=== PATIENT | female | born 1980 | race African-American/Black ===

== ENCOUNTER 2017-09-06 09:58 | Emergency (ER) | payer OTHER ==
[~2017-09-06] VITALS: Ht 157.5 cm; Wt 66.2 kg
[~2017-09-06 09:58] MED LIST: EAR DROPS
[2017-09-06 10:10] VITALS: BP_SYST 103
[2017-09-06] MEDS ORDERED: NACL 0.9% 1,000 ML IV ONE (11:33)
[2017-09-06] MEDS ORDERED: ONDANSETRON HCL 4 MG/2 ML VIAL IVP ONE (11:45)
[2017-09-06 11:55] LABS: BASOPHILS # (AUTO) 0.1 K/uL (0.0-0.2); BASOPHILS % (AUTO) 1.5 % (0.0-2.0); EOSINOPHILS # (AUTO) 0.1 K/uL (0.0-0.4); EOSINOPHILS % (AUTO) 2.3 % (0.0-4.0); HEMATOCRIT 34.9 % (36-48); HEMOGLOBIN 11.1 g/dL (12.0-16.0); LYMPHOCYTES # (AUTO) 1.9 K/uL (1.0-5.5); LYMPHOCYTES % (AUTO) 29.8 % (20.5-51.5); MEAN CORPUSCULAR HEMOGLOBIN 24 pg (27-31); MEAN CORPUSCULAR HGB CONC 32 % (32-36); MEAN CORPUSCULAR VOLUME 74 fL (79.0-98.0); MONOCYTES # (AUTO) 0.4 K/uL (0.0-1.0); MONOCYTES % (AUTO) 6.3 % (1.7-9.3); NEUTROPHILS # (AUTO) 3.8 K/uL (1.8-7.7); NEUTROPHILS % (AUTO) 60.1 % (40.0-70.0); PLATELET COUNT (AUTO) 308 K/uL (130-430); RED CELL DISTRIBUTION WIDTH 13.6 % (9.0-15.0); WHITE BLOOD COUNT (AUTO) 6.3 K/uL (4.8-10.8)
[2017-09-06 12:00] LABS: BILIRUBIN,URINE NEGATIVE (NEGATIVE); BLOOD, URINE 1+ (NEGATIVE); CLARITY/URINE SL HAZY (CLEAR); COLOR,URINE YELLOW (YELLOW); GLUCOSE,URINE NEGATIVE (NEGATIVE); KETONES,URINE NEGATIVE (NEGATIVE); LEUKOCYTE ESTERASE ,URINE TRACE (NEGATIVE); NITRITE, URINE NEGATIVE (NEGATIVE); PROTEIN URINE NEGATIVE (NEGATIVE); UROBILINOGEN,URINE 0.2 (0.2-1.0)
[2017-09-06 12:02] LABS: CALCIUM 8.8 mg/dL (8.4-11.0); CREATININE 0.78 mg/dL (0.55-1.30); POTASSIUM 3.8 mmol/L (3.5-5.1)
[2017-09-06 12:08] LABS: ALBUMIN 4.2 g/dL (3.4-4.8); TOTAL BILIRUBIN 0.6 mg/dL (0.0-1.0)
[2017-09-06 12:12] LABS: BACTERIA,URINE FEW /HPF (None Seen); RBC,URINE 0-3 /HPF (0-3); WBC,URINE 0-3 /HPF (0-3)
[2017-09-06 12:13] LABS: MUCUS,URINE 1+ /LPF (None Seen)
[2017-09-06 13:00] VITALS: BP_SYST 105
== END 2017-09-06 13:00 | disposition home or self-care (01) ==
LOC: SED 09:58
DX: R11.0 Nausea (principal); R10.13 Epigastric pain; R42 Dizziness and giddiness; Z88.1 Allergy status to other antibiotic agents; Z86.2 Personal history of diseases of the blood and blood-forming organs and certain disorders involving the immune mechanism; Z98.51 Tubal ligation status
CPT/HCPCS: 36415; 80053; 81000; 81025; 83690; 85025; 96361; 96374; 99284; J2405; J7030

== ENCOUNTER 2018-07-27 08:37 | Emergency (ER) | payer OTHER ==
[~2018-07-27] VITALS: Ht 157.5 cm; Wt 66.2 kg
[2018-07-27 08:37] VITALS: BP_SYST 140
[2018-07-27] MEDS ORDERED: NACL 0.9% 1,000 ML IV ONE (09:38)
[2018-07-27 10:24] LABS: CALCIUM 9.6 mg/dL (8.4-11.0); CREATININE 0.89 mg/dL (0.55-1.30); INR 0.9 (0.8-1.2); POTASSIUM 3.3 mmol/L (3.5-5.1); PROTHROMBIN TIME 9.4 SECS (9.5-12.5)
[2018-07-27 10:25] LABS: BASOPHILS # (AUTO) 0.1 K/uL (0.0-0.2); BASOPHILS % (AUTO) 1.2 % (0.0-2.0); EOSINOPHILS # (AUTO) 0.1 K/uL (0.0-0.4); EOSINOPHILS % (AUTO) 2.6 % (0.0-4.0); HEMATOCRIT 38.8 % (36-48); HEMOGLOBIN 12.1 g/dL (12.0-16.0); LYMPHOCYTES # (AUTO) 1.6 K/uL (1.0-5.5); LYMPHOCYTES % (AUTO) 28.3 % (20.5-51.5); MEAN CORPUSCULAR HEMOGLOBIN 23 pg (27-31); MEAN CORPUSCULAR HGB CONC 31 % (32-36); MEAN CORPUSCULAR VOLUME 74 fL (79.0-98.0); MONOCYTES # (AUTO) 0.3 K/uL (0.0-1.0); MONOCYTES % (AUTO) 5.1 % (1.7-9.3); NEUTROPHILS # (AUTO) 3.5 K/uL (1.8-7.7); NEUTROPHILS % (AUTO) 62.8 % (40.0-70.0); PLATELET COUNT (AUTO) 359 K/uL (130-430); RED BLOOD CELL COUNT(AUTO) 5.22 MIL/uL (4.2-6.2); RED CELL DISTRIBUTION WIDTH 13.5 % (9.0-15.0); WHITE BLOOD COUNT (AUTO) 5.6 K/uL (4.8-10.8)
[2018-07-27 10:27] LABS: BILIRUBIN,URINE NEGATIVE (NEGATIVE); BLOOD, URINE NEGATIVE (NEGATIVE); CLARITY/URINE CLEAR (CLEAR); COLOR,URINE YELLOW (YELLOW); GLUCOSE,URINE NEGATIVE (NEGATIVE); KETONES,URINE NEGATIVE (NEGATIVE); LEUKOCYTE ESTERASE ,URINE NEGATIVE (NEGATIVE); NITRITE, URINE NEGATIVE (NEGATIVE); PROTEIN URINE NEGATIVE (NEGATIVE); UROBILINOGEN,URINE 0.2 (0.2-1.0)
[2018-07-27 10:28] LABS: ALBUMIN 4.6 g/dL (3.4-4.8); TOTAL BILIRUBIN 0.7 mg/dL (0.0-1.0)
[2018-07-27 11:38] VITALS: BP_SYST 140
== END 2018-07-27 11:38 | disposition home or self-care (01) ==
LOC: SED 08:37
DX: K52.9 Noninfective gastroenteritis and colitis, unspecified (principal); D64.9 Anemia, unspecified; Z98.51 Tubal ligation status; Z88.1 Allergy status to other antibiotic agents
CPT/HCPCS: 36415; 76700; 80053; 81003; 81025; 83690; 85025; 85610; 96360; 99285; J7030; J7040

== ENCOUNTER 2019-06-21 11:00 | Emergency (ER) | payer MEDICAID, OTHER ==
[~2019-06-21] VITALS: Ht 165.1 cm; Wt 68.0 kg
[2019-06-21 11:20] VITALS: BP_SYST 123
[2019-06-21] MEDS ORDERED: KETOROLAC TROMETHAMINE 30 MG VIAL IVP ONE (11:45)
[2019-06-21 12:28] LABS: HEMOGLOBIN 12.2 g/dL (12.0-16.0); MEAN CORPUSCULAR VOLUME 73 fL (79.0-98.0); RED BLOOD CELL COUNT(AUTO) 5.18 MIL/uL (4.2-6.2); WHITE BLOOD COUNT (AUTO) 5.2 K/uL (4.8-10.8)
[2019-06-21 12:29] LABS: BASOPHILS # (AUTO) 0.1 K/uL (0.0-0.2); BASOPHILS % (AUTO) 1.2 % (0.0-2.0); EOSINOPHILS # (AUTO) 0.1 K/uL (0.0-0.4); EOSINOPHILS % (AUTO) 1.3 % (0.0-4.0); LYMPHOCYTES # (AUTO) 1.5 K/uL (1.0-5.5); MEAN CORPUSCULAR HEMOGLOBIN 24 pg (27-31); MEAN CORPUSCULAR HGB CONC 32 % (32-36); MONOCYTES # (AUTO) 0.3 K/uL (0.0-1.0); MONOCYTES % (AUTO) 6.3 % (1.7-9.3); NEUTROPHILS # (AUTO) 3.3 K/uL (1.8-7.7); NEUTROPHILS % (AUTO) 63.2 % (40.0-70.0); PLATELET COUNT (AUTO) 297 K/uL (130-430); RED CELL DISTRIBUTION WIDTH 14.1 % (9.0-15.0)
[2019-06-21 12:48] LABS: ANION GAP 9 (5-15); CALCIUM 8.9 mg/dL (8.4-11.0); CHLORIDE 104 mmol/L (98-107); GLUCOSE 105 mg/dL (70-99); POTASSIUM 3.6 mmol/L (3.5-5.1); SODIUM SERUM 140 mmol/L (136-145); UREA NITROGEN, BLOOD 8 mg/dL (8-21)
[2019-06-21 12:50] LABS: GFR AFRICAN AMERICAN 80 mL/min (>90)
[2019-06-21 12:57] LABS: ALANINE AMINOTRANSFERASE 12 U/L (12-78); ALBUMIN 4.1 g/dL (3.4-4.8); ASPARTATE AMINOTRANSFERASE 11 U/L (10-37); TOTAL BILIRUBIN 0.5 mg/dL (0.0-1.0)
[2019-06-21 13:31] VITALS: BP_SYST 111
== END 2019-06-21 13:31 | disposition home or self-care (01) ==
LOC: SED 11:00
DX: R07.89 Other chest pain (principal); Z86.2 Personal history of diseases of the blood and blood-forming organs and certain disorders involving the immune mechanism; Z88.1 Allergy status to other antibiotic agents
CPT/HCPCS: 36415; 71045; 80053; 84484; 85025; 85379; 93005; 96374; 99284; J1885

== ENCOUNTER 2020-12-20 11:14 | Emergency (ER) | payer MEDICAID ==
[~2020-12-20] VITALS: Ht 160 cm; Wt 72.6 kg
[2020-12-20 11:21] VITALS: BP_SYST 110
[2020-12-20 11:53] LABS: BASOPHILS # (AUTO) 0.1 K/uL (0.0-0.2); EOSINOPHILS # (AUTO) 0.1 K/uL (0.0-0.4); HEMATOCRIT 36.3 % (36-48); HEMOGLOBIN 11.7 g/dL (12.0-16.0); LYMPHOCYTES # (AUTO) 1.7 K/uL (1.0-5.5); LYMPHOCYTES % (AUTO) 33.5 % (20.5-51.5); MEAN CORPUSCULAR HEMOGLOBIN 24 pg (27-31); MEAN CORPUSCULAR HGB CONC 32 % (32-36); MEAN CORPUSCULAR VOLUME 73 fL (79.0-98.0); MONOCYTES # (AUTO) 0.3 K/uL (0.0-1.0); MONOCYTES % (AUTO) 6.1 % (1.7-9.3); NEUTROPHILS # (AUTO) 2.9 K/uL (1.8-7.7); NEUTROPHILS % (AUTO) 57.2 % (40.0-70.0); PLATELET COUNT (AUTO) 293 K/uL (130-430); RED BLOOD CELL COUNT(AUTO) 4.99 MIL/uL (4.2-6.2); RED CELL DISTRIBUTION WIDTH 14.7 % (9.0-15.0); WHITE BLOOD COUNT (AUTO) 5.1 K/uL (4.8-10.8)
[2020-12-20 12:10] LABS: BASOPHILS % (AUTO) 1.3 % (0.0-2.0); EOSINOPHILS % (AUTO) 1.9 % (0.0-4.0)
[2020-12-20 12:15] LABS: CALCIUM 8.9 mg/dL (8.4-11.0); POTASSIUM 4.3 mmol/L (3.5-5.1)
[2020-12-20 12:21] LABS: TOTAL BILIRUBIN 0.7 mg/dL (0.0-1.0)
[2020-12-20 13:18] VITALS: BP_SYST 110
== END 2020-12-20 13:16 | disposition home or self-care (01) ==
LOC: SED 11:14
DX: G62.9 Polyneuropathy, unspecified (principal); R20.2 Paresthesia of skin; Z88.1 Allergy status to other antibiotic agents
CPT/HCPCS: 36415; 70450-TC; 76376; 80053; 85025; 93005; 99285

== ENCOUNTER 2023-01-04 10:50 | Emergency (ER) | payer MEDICAID ==
--- NOTE | 2023-01-04 15:28 | NUR ---
made call out into lobby no answer lwbs by physician
== END 2023-01-04 15:28 | disposition left against medical advice (07) ==
LOC: SED 10:50
DX: S61.219A Laceration without foreign body of unspecified finger without damage to nail, initial encounter (principal); Z53.21 Procedure and treatment not carried out due to patient leaving prior to being seen by health care provider; X58.XXXA Exposure to other specified factors, initial encounter; Y93.89 Activity, other specified; Y92.89 Other specified places as the place of occurrence of the external cause; Y99.8 Other external cause status